=== PATIENT | female | born 1995 | race Caucasian/White ===

== ENCOUNTER 2017-05-26 13:03 | Inpatient (IN) | payer BC ==
[~2017-05-26] VITALS: Ht 160 cm; Wt 76.4 kg
[2017-05-26] VITALS (395 sets, daily range): BP systolic 113–120; BP diastolic 69–74; PULSE 94–111; TEMP 98.2–98.7; O2SAT 95–100
[2017-05-26] MEDS ORDERED: ESTARYLLA 35 MC1 TAB PO (13:12)
[2017-05-26 13:47] LABS: HEMATOCRIT 39.3 % (37.0-47.0); HEMOGLOBIN 13.7 g/dl (12.5-16.0); MEAN CELL VOLUME 90 fl (80.0-100.0); MEAN CORPUSCULAR HEMOGLOBIN 31 pg (27.0-31.0); MEAN CORPUSCULAR HGB CONC 35 g/dl (33.0-37.0); MEAN PLATELET VOLUME 8.9 fl (7.4-10.4); PLATELET COUNT 207 K/mm3 (130-400); RED BLOOD COUNT 4.39 M/mm3 (4.10-5.30); WHITE BLOOD COUNT 18.7 K/mm3 (4.8-10.8)
[2017-05-26 13:50] LABS: ADD PATHOLOGY DIFF REVIEW NO
[2017-05-26 13:56] LABS: COLLECTION METHOD CLEAN CATCH
[2017-05-26 14:02] LABS: ADJUSTED CALCIUM 9.3 mg/dL (8.4-10.2); ALBUMIN 4.9 gm/dL (3.5-5.0); BILIRUBIN,TOTAL 0.8 mg/dL (0.0-1.0); CREATININE, serum 1.37 mg/dL (0.52-1.25); POTASSIUM 3.6 mmol/L (3.4-5.0); TOTAL PROTEIN 8.4 gm/dL (6.4-8.2)
[2017-05-26 14:03] LABS: MUCOUS Present /lpf; PH 6 (5-8); URINE APPEARANCE Hazy; URINE BACTERIA Rare /hpf; URINE BILIRUBIN Negative (NEGATIVE); URINE BLOOD 1+ (NEGATIVE); URINE COLOR Yellow; URINE GLUCOSE Negative (NEGATIVE); URINE KETONE Trace (NEGATIVE); URINE LEUKOCYTE ESTERASE Negative (NEGATIVE); URINE PROTEIN(semi-quant) 3+ (NEGATIVE); URINE UROBILINOGEN Negative (NEGATIVE); URINE WBC 20-50 /hpf
[2017-05-26 14:10] LABS: BAND 10 % (0-10); LYMPHOCYTE 16 % (20.0-51.0); METAMYELOCYTE 3 % (0-0); NEUTROPHILS 65 % (42.0-75.2); PLATELET ESTIMATE NORMAL (NORMAL); TOTAL CELLS COUNTED 100
[2017-05-27] VITALS (459 sets, daily range): BP systolic 95–118; BP diastolic 54–82; PULSE 59–81; TEMP 97.4–98.6; O2SAT 95–100
[2017-05-27 06:24] LABS: BASO % 0.2 % (0.0-2.0); GRAN # 10.7 (1.4-6.5); GRAN % 84.3 % (42.2-75.2); LYMPH # 1.1 (1.2-3.4); LYMPH % 8.6 % (20.0-51.0); MEAN CELL VOLUME 90 fl (80.0-100.0); MEAN CORPUSCULAR HGB CONC 34 g/dl (33.0-37.0); MEAN PLATELET VOLUME 9.6 fl (7.4-10.4); MONO # 0.8 (0.1-0.6); MONO % 6.2 % (1.7-9.3); PLATELET COUNT 206 K/mm3 (130-400); RED BLOOD COUNT 3.87 M/mm3 (4.10-5.30); WHITE BLOOD COUNT 12.7 K/mm3 (4.8-10.8)
[2017-05-27 06:30] LABS: HEMATOCRIT 34.8 % (37.0-47.0); HEMOGLOBIN 11.8 g/dl (12.5-16.0); MEAN CORPUSCULAR HEMOGLOBIN 30 pg (27.0-31.0)
[2017-05-27 06:35] LABS: CALCIUM 9.3 mg/dL (8.4-10.2); CREATININE, serum 0.73 mg/dL (0.52-1.25); POTASSIUM 3.9 mmol/L (3.4-5.0)
[2017-05-28 05:08] VITALS: BP 97/56; PULSE 70; TEMP 98.5
== END 2017-05-28 09:35 | disposition home or self-care (01) | DRG 872 ==
LOC: COL.ER 13:03 → ICU 14:38 → SURG 14:38
PROVIDERS: Family Medicine; Urology
PROC: 0T768DZ Dilation of Right Ureter with Intraluminal Device, Via Natural or Artificial Opening Endoscopic (ICD-10-PCS; principal; 2017-05-26 16:00)
PROC: BT1D1ZZ Fluoroscopy of Right Kidney, Ureter and Bladder using Low Osmolar Contrast (ICD-10-PCS; 2017-05-26 16:00)
DX: A41.51 Sepsis due to Escherichia coli [E. coli] (principal); N13.6 Pyonephrosis; N20.2 Calculus of kidney with calculus of ureter; Z87.442 Personal history of urinary calculi; B96.20 Unspecified Escherichia coli [E. coli] as the cause of diseases classified elsewhere
CPT/HCPCS: A4314; A9284; C1769; C2617; J0690; J0696; J1100; J1170; J1956; J2405; J2704; J3010; J7030; J7050; J7120; Q9967

== ENCOUNTER 2017-06-28 09:43 | Day surgery (SDC) | payer BC ==
[~2017-06-28] VITALS: Ht 160 cm; Wt 74.8 kg
[~2017-06-28 09:43] MED LIST: ESTARYLLA 35 MC1 TAB PO
[2017-06-28 10:29] VITALS: BP 129/63; PULSE 93; TEMP 98.5
[2017-06-28 12:36] VITALS: BP 103/66; PULSE 76; TEMP 99.1
[2017-06-28 12:45] VITALS: BP 117/68; PULSE 93
[2017-06-28] MEDS ORDERED: PYRIDIUM 100MG100 MG PO (12:53)
[2017-06-28] MEDS ORDERED: NORCO 325 MG-51 TAB PO (12:54)
[2017-06-28] MEDS ORDERED: SENOKOT S 50 MG1 TAB PO (12:54)
[2017-06-28 13:00] VITALS: BP 114/53; PULSE 77
[2017-06-28 13:02] VITALS: BP 103/66; PULSE 85; TEMP 99.1
== END 2017-06-28 13:25 | disposition home or self-care (01) ==
LOC: SDCO 09:43
DX: N20.2 Calculus of kidney with calculus of ureter (principal)
CPT/HCPCS: OP; C1769; J0690; J1100; J1885; J2405; J2704; J3010; J7120